=== PATIENT | male | born 1970 | race Caucasian/White ===

== ENCOUNTER → 2017-04-01 | Outpatient (CLI) | payer OTHER ==
[~2017-04-01] MED LIST: LISIPOW
--- NOTE | 2017-04-01 08:53 | DIAGNOSTIC IMAGING REPORT ---
MRI LEFT KNEE NO CONTRAST CLINICAL HISTORY: LEFT KNEE PAIN COMPARISON STUDY: No previous studies for comparison. FINDINGS: Imaging was performed in sagittal, coronal, and axial planes. There are no areas of marrow edema to indicate occult fracture or bone bruise. There is mild chondromalacia patella. There is a small suprapatellar joint effusion. There is thickening of the posterior cruciate ligament, but the ligament appears intact. The anterior cruciate ligament appears intact. The medial and lateral collateral ligaments appear intact. There is globular increased signal within the medial meniscus. There is a medial meniscus root tear. No tears a lateral meniscus are visualized. There is edema within the popliteus muscle, indicative of a partial tear.. IMPRESSION: 1. Small joint effusion 2. Partial tear of the popliteus muscle 3. Medial meniscal root tear 4. Mild thickening of the femoral insertion of the posterior cruciate ligament 5. Minimal chondromalacia patella. Electronically signed by: Dakotah Rodrigues M.D. 04/01/2017 8:52 AM Dictated Date/Time: 04/01/2017 8:35 AM
== END | disposition home or self-care (01) ==
LOC: C.MRI 07:09
PROVIDERS: ATTEND Family Medicine
DX: S86.892A Other injury of other muscle(s) and tendon(s) at lower leg level, left leg, initial encounter (principal); S83.242A Other tear of medial meniscus, current injury, left knee, initial encounter; X58.XXXA Exposure to other specified factors, initial encounter